=== PATIENT | male | born 1945 | race Caucasian/White ===

== ENCOUNTER → 2022-07-31 | Day surgery (SDC) | payer MEDICARE, OTHER ==
[~2022-07-31] VITALS: Ht 177.8 cm; Wt 74.4 kg
[~2022-07-31] MED LIST: AMOXICILLIN500 MG PO; ATENOLOL25 MG PO; CEPHALEXIN500 M1 PO; CIPRO500 MG PO; FINASTERIDE5 MG PO; FLOMAX0.4 MG PO; HYDROCODONE BIT1 T11 PO; LEVOFLOXACIN500 MG PO; MOTRIN800 MG PO; PERCOCET 325 MG1 TA2 PO; VICODIN ES 7501 TAB PO
[2022-07-31 08:24] VITALS: BP 113/57
[2022-07-31 09:04] VITALS: BP 90/54
[2022-07-31 09:15] VITALS: BP 97/57
[2022-07-31 09:40] VITALS: BP 126/68
== END | disposition home or self-care (01) ==
LOC: SDC 07-28 11:00
PROVIDERS: ATTEND Surgery
DX: Z12.11 Encounter for screening for malignant neoplasm of colon (principal); D12.2 Benign neoplasm of ascending colon; D12.8 Benign neoplasm of rectum; K57.30 Diverticulosis of large intestine without perforation or abscess without bleeding; I10 Essential (primary) hypertension; E78.00 Pure hypercholesterolemia, unspecified; Z79.899 Other long term (current) drug therapy

== ENCOUNTER 2023-05-22 19:48 | Emergency (ER) | payer MEDICARE, OTHER ==
[~2023-05-22] VITALS: Wt 72.6 kg
[2023-05-22] MEDS ORDERED: FLOMAX0.4 MG PO (20:02)
[2023-05-22] MEDS ORDERED: ASPIRIN CHILDRE81 MG PO (20:03)
[2023-05-22 20:27] LABS: BILIRUBIN Negative (Negative); BLOOD 2+ (Negative); CLARITY Turbid (Clear); COLOR Yellow (Yellow); GLUCOSE Negative (Negative); KETONE Negative (Negative); LEUKO ESTERASE 3+ (Negative); NITRITE Positive (Negative); PH 5.5 (4.5-8.0); SPECIFIC GRAVITY 1.015 (1.001-1.030); UROBILINOGEN 0.2 E.U./dl (0.0-1.0)
[2023-05-22 20:37] LABS: BACTERIA 3+; EPITHELIAL CELLS 0-2; RBC 0-2 rbc/hpf (0-2); WBC TNTC wbc/hpf (0-5)
[2023-05-22] MEDS ORDERED: CIPRO500 MG PO (20:59)
== END 2023-05-22 21:04 | disposition home or self-care (01) ==
LOC: ED 19:48
PROVIDERS: Internal Medicine
DX: R33.9 Retention of urine, unspecified (principal); N39.0 Urinary tract infection, site not specified; I10 Essential (primary) hypertension; E78.5 Hyperlipidemia, unspecified; Z98.890 Other specified postprocedural states